=== PATIENT | female | born 1955 | race Caucasian/White ===

== ENCOUNTER 2025-03-15 07:04 | Outpatient (CLI) | payer MEDICARE, SELFPAY ==
--- NOTE | ~2025-03-15 | MR_ITS ---
EXAMINATION: MR lumbar spine wo [facility], 03/15/2025 7:15 CDT HISTORY: Lumbar stenosis COMPARISON: None TECHNIQUE: Multi-planar multi-sequence images were obtained of the lumbar spine without contrast per protocol. FINDINGS: Moderate loss of vertebral height throughout, grade 1 retrolisthesis of L1 on L2, L2 on L3 with grade 1 anterolisthesis of L3 on L4 and L5 on S1. No acute fracture is identified. Marrow signal is appropriate with scattered areas of probable hemangioma formation. Posterior alignment is intact. No abnormal signal in the posterior elements Conus terminates at T12-L1. No abnormal signal in the cord There is severe loss of disc height throughout with multilevel severe disc desiccation and endplate degenerative changes. Soft tissues demonstrate partially imaged probable peripelvic renal cysts L5-S1: Circumferential bulging of the disc. Ligamentum flavum and facet hypertrophy. Severe bilateral foramina, lateral recess and moderate canal stenosis. L4-5: Circumferential bulging of the disc. Moderate ligamentum flavum and facet hypertrophy. Severe bilateral foramina, lateral recess or canal stenosis. L3-4: Circumferential bulging of the disc. Moderate ligamentum flavum and facet hypertrophy. Severe bilateral foramina, lateral recess or canal stenosis. L2-3: Circumferential bulging of this. Mild ligamentum flavum and facet hypertrophy. Moderate bilateral foramina and mild lateral recess stenosis. No canal stenosis. L1-L2: Circumferential bulging of the disc with facet hypertrophy, moderate bilateral foramina stenosis, no lateral recess or canal stenosis. IMPRESSION: Degenerative changes detailed above Reviewed, dictated and finalized at location A.
== END 2025-03-15 07:05 | disposition home or self-care (01) ==
PROVIDERS: PCP Internal Medicine Infectious Disease; Visit Provider Physician Assistant
DX: M48.062 Spinal stenosis, lumbar region with neurogenic claudication (principal); M51.379 Other intervertebral disc degeneration, lumbosacral region without mention of lumbar back pain or lower extremity pain
CPT/HCPCS: 72148